=== PATIENT | female | born 1980 | race Caucasian/White ===

== ENCOUNTER 2017-09-18 18:54 | Emergency (ER) | payer OTHER ==
[~2017-09-18] VITALS: Ht 154.9 cm; Wt 52.4 kg
[2017-09-18 19:13] VITALS: BP 117/66
[2017-09-18] MEDS ORDERED: POLOS EACHEYE (20:43)
[2017-09-18] MEDS ORDERED: AZIT250T2 PO (20:43)
== END 2017-09-18 21:00 | disposition home or self-care (01) ==
LOC: ER 18:55
DX: J20.9 Acute bronchitis, unspecified (principal); Z59.0 Homelessness; Z88.0 Allergy status to penicillin; Z79.899 Other long term (current) drug therapy
CPT/HCPCS: 99283

== ENCOUNTER 2018-01-19 11:12 | Emergency (ER) | payer MEDICAID ==
[~2018-01-19] VITALS: Ht 154.9 cm; Wt 45.0 kg
[2018-01-19] MEDS ORDERED: LORazepam 2 mg/ml vial IM ONE (11:30)
[2018-01-19 11:50] LABS: BASOPHILS % (AUTO) 0.3 % (0-1); EOSINOPHILS # (AUTO) 0.3 X10'3 (0-0.9); EOSINOPHILS % (AUTO) 1.9 % (0-6); HEMATOCRIT 40.7 % (35.0-45.0); HEMOGLOBIN 13.7 g/dl (12.0-16.0); LYMPHOCYTES # (AUTO) 1.7 X10'3 (1.1-4.8); LYMPHOCYTES % (AUTO) 12.2 % (21-51); MEAN CORPUSCULAR HGB CONC 33.6 % (33.0-36.5); MEAN CORPUSCULAR VOLUME 92.2 FL (78-98); MONOCYTES # (AUTO) 0.5 X10'3 (0-0.9); MONOCYTES % (AUTO) 3.7 % (2-12); NEUTROPHILS # (AUTO) 11.5 X10'3 (1.8-7.7); NEUTROPHILS % (AUTO) 81.9 % (42-75); PLATELET COUNT 319 X10'3 (140-440); RED BLOOD COUNT 4.41 X10'6 (4.20-5.60); RED CELL DISTRIBUTION WIDTH 13.2 % (11.5-14.5)
[2018-01-19 12:00] LABS: ALANINE AMINOTRANSFERASE 38 U/L (12-78); ALBUMIN 3.9 G/DL (3.4-5.0); ALKALINE PHOSPHATASE 63 IU/L (46-116); ANION GAP 24 (8-16); ASPARTATE AMINO TRANSFERASE 49 U/L (10-37); BILIRUBIN,TOTAL 0.5 MG/DL (0.1-1.0); BLOOD UREA NITROGEN 10 MG/DL (7-18); CHLORIDE 98 MMOL/L (99-107); CREATINE KINASE 190 U/L (26-192); CREATININE 1.43 MG/DL (0.40-0.90); GLUCOSE 236 MG/DL (70-104); SODIUM 137 MMOL/L (135-145); TOTAL PROTEIN 7.7 G/DL (6.4-8.2); eGFR 42 ML/MIN
[2018-01-19 12:01] LABS: POTASSIUM 2.8 MMOL/L (3.5-5.1); TOTAL CARBON DIOXIDE 14.8 MMOL/L (24-32)
[2018-01-19] MEDS ORDERED: normal saline 1000ML IV soln IVB ONE ×2 (12:05→17:45)
[2018-01-19] MEDS ORDERED: diphenhydrAMINE 50 mg/ml inj IV ONE (12:05)
[2018-01-19] MEDS ORDERED: haloperidol lactate 5mg/ml inj IM ONE (12:10)
[2018-01-19] MEDS ORDERED: potassium Cl 20 mEq SR tablet PO STA (12:44)
[2018-01-19] MEDS: potassium 10mEq/100ml NS w/LIDOcaine (10mg/bag) IV SCH ×2 (13:30→14:29)
[2018-01-19 17:03] LABS: CLARITY,URINE CLEAR (Clear); COLOR,URINE YELLOW (Yellow); GLUCOSE, URINE NEGATIVE (Neg); KETONES,URINE TRACE mg/dl (Neg); LEUKOCYTE ESTERASE ,URINE NEGATIVE (Neg); NITRITES, URINE POSITIVE (Neg); OCCULT BLOOD,URINE SMALL (Neg); PROTEIN,URINE 30 mg/dl (Neg); UROBILINOGEN,URINE 0.2 E.U/dL (0.2-1.0)
[2018-01-19 17:21] LABS: UA COLLECTION TYPE STRAIGHT CATH
[2018-01-19 17:23] LABS: BACTERIA,URINE 1+ /HPF (Neg); HYALINE CASTS 0-3 /LPF (NEGATIVE); MUCUS STRANDS FEW /LPF (Neg); RBC,URINE 0-2 /HPF (0-2); SQUAMOUS EPITHELIAL CELL,UR FEW /LPF (FEW); WBC,URINE 0-4 /HPF (0-4)
[2018-01-19 17:30] LABS: ALANINE AMINOTRANSFERASE 32 U/L (12-78); ALBUMIN 2.8 G/DL (3.4-5.0); ALKALINE PHOSPHATASE 39 IU/L (46-116); ANION GAP 6 (8-16); ASPARTATE AMINO TRANSFERASE 43 U/L (10-37); BILIRUBIN,TOTAL 0.4 MG/DL (0.1-1.0); BLOOD UREA NITROGEN 8 MG/DL (7-18); BUN/CREATININE RATIO 10.7 (6.6-38.0); CALCIUM 7.5 MG/DL (8.5-10.1); CHLORIDE 109 MMOL/L (99-107); CREATINE KINASE 736 U/L (26-192); CREATININE 0.75 MG/DL (0.40-0.90); GLUCOSE 79 MG/DL (70-104); POTASSIUM 3.2 MMOL/L (3.5-5.1); SODIUM 141 MMOL/L (135-145); TOTAL CARBON DIOXIDE 25.7 MMOL/L (24-32); TOTAL PROTEIN 5.5 G/DL (6.4-8.2); eGFR 88 ML/MIN
[2018-01-19] MEDS ORDERED: NITR100C PO (17:44)
[2018-01-19 18:07] LABS: ETHANOL < 0.010 GM/DL (0.0-0.010)
[2018-01-19 18:18] LABS: URINE AMPHETAMINE SCREEN POSITIVE (Neg); URINE BARBITUATE SCREEN NEGATIVE (Neg); URINE BENZODIAZEPINES SCREEN NEGATIVE (Neg); URINE CANNABINOID SCREEN POSITIVE (Neg); URINE COCAINE SCREEN NEGATIVE (Neg); URINE METHADONE SCREEN NEGATIVE (Neg); URINE OPIATE SCREEN NEGATIVE (Neg); URINE PHENCYCLIDINE SCREEN NEGATIVE (Neg)
[2018-01-19 19:23] VITALS: BP 100/58
== END 2018-01-19 19:25 | disposition home or self-care (01) ==
LOC: ER 11:13
DX: N39.0 Urinary tract infection, site not specified (principal); F15.10 Other stimulant abuse, uncomplicated; Z88.0 Allergy status to penicillin; Z79.899 Other long term (current) drug therapy; Z59.0 Homelessness
CPT/HCPCS: 36415; 80053; 80305; 80320; 81001; 82550; 83874; 85025; 87088; 96361; 96372; 96374; 99285; A4353; J1200; J1630; J2060; J3480; J7030